=== PATIENT | female | born 1990 ===

== ENCOUNTER 2022-01-12 08:49 | Emergency (ER) | payer SELFPAY ==
[2022-01-12 09:00] VITALS: BP 156/108
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
[2022-01-12] MEDS ORDERED: cloNIDine 0.1 MG TAB PO SCH (11:00)
== END 2022-01-12 12:00 | disposition home or self-care (01) ==
LOC: ED 08:49
DX: R03.0 Elevated blood-pressure reading, without diagnosis of hypertension (principal)
CPT/HCPCS: 99282